=== PATIENT | female | born 1970 | race Caucasian/White ===

== ENCOUNTER 2016-08-28 13:10 | Emergency (ER) | payer MEDICAID ==
[~2016-08-28] VITALS: Ht 162.6 cm; Wt 77.0 kg
[2016-08-28 13:32] LABS: GLUCOSE, URINE (UA) NEGATIVE (NEGATIVE); KETONES,URINE NEGATIVE (NEGATIVE); LEUKOCYTE ESTERASE ,URINE NEGATIVE (NEGATIVE); OCCULT BLOOD,URINE MODERATE (NEGATIVE); PH,URINE 5.5 (5.0-8.0); PROTEIN,URINE NEGATIVE (NEGATIVE)
[2016-08-28 13:42] LABS: ADD UA MICROSCOPIC YES; APPEARANCE,URINE SLIGHTLY CLOUDY (CLEAR)
[2016-08-28 13:43] LABS: SQUAMOUS EPITHELIAL CELL,UR Moderate /LPF (None Seen); WBC,URINE None Seen /HPF (0-5)
[2016-08-28 13:43] LABS: BASOPHILS % (AUTO) 0.7 % (0.0-2.0); EOSINOPHILS % (AUTO) 1.5 % (1.0-6.0); HEMATOCRIT 42.2 % (36-46); HEMOGLOBIN 14.3 g/dL (12.0-16.0); LYMPHOCYTES # (AUTO) 3.1 K/uL (1.0-4.8); LYMPHOCYTES % (AUTO) 30.8 % (22.0-44.0); MEAN CORPUSCULAR HEMOGLOBIN 28.6 pg (26.0-34.0); MEAN CORPUSCULAR HGB CONC 33.9 G/dL (31.0-37.0); MEAN CORPUSCULAR VOLUME 84 fL (80-100); MONOCYTES # (AUTO) 0.7 K/uL (0.1-1.0); MONOCYTES % (AUTO) 6.6 % (2.0-9.0); NEUTROPHILS # (AUTO) 6.1 K/uL (1.8-7.7); NEUTROPHILS % (AUTO) 60.4 % (40.0-70.0); PLATELET COUNT (AUTO) 334 K/uL (150-450); RED BLOOD CELL COUNT(AUTO) 5.01 MIL/uL (4.00-5.20); RED CELL DISTRIBUTION WIDTH 13.8 % (11.5-14.5); WHITE BLOOD COUNT (AUTO) 10.1 K/uL (4.5-11.0)
[2016-08-28 13:50] LABS: ANION GAP 11 mmol/L (8-16); CARBON DIOXIDE 26 mmol/L (22-29); CHLORIDE 106 mmol/L (98-107); CREATININE 0.96 mg/dL (0.60-1.30); GLOMERULAR FILTR. RATE CALC > 60 mL/min (>60); SODIUM SERUM 143 mmol/L (136-145); UREA NITROGEN, BLOOD 15 mg/dL (7-18)
[2016-08-28 13:56] LABS: ALANINE AMINOTRANSFERASE 36 U/L (12-78); ALBUMIN 3.9 g/dL (3.4-5.0); ASPARTATE AMINOTRANSFERASE 20 U/L (15-37); BILIRUBIN,TOTAL 0.7 mg/dL (0.1-1.0); TOTAL PROTEIN, SERUM 7.5 g/dL (6.4-8.2)
[2016-08-28 17:53] VITALS: BP 132/79
== END 2016-08-28 18:16 | disposition home or self-care (01) ==
LOC: EMS 13:12 → EDBD 13:12 → EMS 18:16
DX: R10.812 Left upper quadrant abdominal tenderness (principal); F17.210 Nicotine dependence, cigarettes, uncomplicated; I95.9 Hypotension, unspecified
CPT/HCPCS: 99284

== ENCOUNTER 2023-04-15 01:17 | Emergency (ER) | payer MEDICAID, OTHER ==
[~2023-04-15] VITALS: Ht 152.4 cm; Wt 84.1 kg
[2023-04-15 01:35] VITALS: BP 163/97; PULSE 92; RESP 18; TEMP 98.3
== END 2023-04-15 02:12 | disposition left against medical advice (07) ==
LOC: EMS 01:18
DX: R12 Heartburn (principal); Z53.21 Procedure and treatment not carried out due to patient leaving prior to being seen by health care provider
CPT/HCPCS: 99281; Z7502